=== PATIENT | male | born 1940 | race Caucasian/White ===

== ENCOUNTER 2017-03-02 15:51 | Inpatient (IN) | payer OTHER, MEDICAID ==
[~2017-03-02] VITALS: Ht 165.1 cm; Wt 58.5 kg
[2017-03-02 17:15] VITALS: BP_SYST 128
[2017-03-02 18:11] LABS: EOSINOPHILS # (AUTO) 0.3 K/uL (0.0-0.4); HEMOGLOBIN 11.7 g/dL (14.0-18.0); LYMPHOCYTES # (AUTO) 1.5 K/uL (1.0-5.5); MONOCYTES # (AUTO) 0.6 K/uL (0.0-1.0); NEUTROPHILS # (AUTO) 1.1 K/uL (1.8-7.7); NEUTROPHILS % (AUTO) 32.5 % (40.0-70.0); WHITE BLOOD COUNT (AUTO) 3.5 K/uL (4.8-10.8)
[2017-03-02 18:15] LABS: BASOPHILS % (AUTO) 0.9 % (0.0-2.0); EOSINOPHILS % (AUTO) 8.3 % (0.0-4.0); HEMATOCRIT 34.2 % (36-54); LYMPHOCYTES % (AUTO) 40.4 % (20.5-51.5); MEAN CORPUSCULAR HEMOGLOBIN 36 pg (27-31); MEAN CORPUSCULAR HGB CONC 34 % (32-36); MEAN CORPUSCULAR VOLUME 104 fL (79.0-98.0); MONOCYTES % (AUTO) 17.9 % (1.7-9.3); PLATELET COUNT (AUTO) 137 K/uL (130-430); RED BLOOD CELL COUNT(AUTO) 3.29 MIL/uL (4.2-6.2); RED CELL DISTRIBUTION WIDTH 13.7 % (9.0-15.0)
[2017-03-02 18:20] LABS: ALANINE AMINOTRANSFERASE 25 U/L (12-78); ANION GAP 7 (5-15); ASPARTATE AMINOTRANSFERASE 30 U/L (10-37); CHLORIDE 108 mmol/L (98-107); CREATININE 0.64 mg/dL (0.55-1.30); GLUCOSE 74 mg/dL (70-99); POTASSIUM 3.6 mmol/L (3.5-5.1); SODIUM SERUM 143 mmol/L (136-145); TOTAL BILIRUBIN 0.5 mg/dL (0.0-1.0); UREA NITROGEN, BLOOD 17 mg/dL (8-21)
[2017-03-02 18:37] LABS: CALCIUM 8.3 mg/dL (8.4-11.0)
[2017-03-02] MEDS: LACTULOSE 20 GM/30 ML UDC PO SCH (20:59)
[2017-03-02] MEDS: RIFAXIMIN 550 MG TABLET PO SCH (20:59)
[2017-03-02] MEDS ORDERED: MEROPENEM 500 MG VIAL IV ONE (21:26)
[2017-03-02] MEDS: MEROPENEM 1,000 MG in NS 50 ML IV SCH (22:09)
[2017-03-02] MEDS: NORMAL SALINE 5 ML DISP.SYRIN IVF SCH (22:09)
[2017-03-03 00:17] VITALS: BP_SYST 126
[2017-03-03 04:07] VITALS: BP_SYST 125
[2017-03-03] MEDS: MEROPENEM 1,000 MG in NS 50 ML IV SCH ×3 (06:00→21:58)
[2017-03-03] MEDS: NORMAL SALINE 5 ML DISP.SYRIN IVF SCH ×3 (06:00→22:03)
[2017-03-03 08:25] VITALS: BP_SYST 110
[2017-03-03] MEDS: LACTULOSE 20 GM/30 ML UDC PO SCH ×2 (08:44→20:27)
[2017-03-03] MEDS: RIFAXIMIN 550 MG TABLET PO SCH ×2 (08:44→20:27)
[2017-03-03] MEDS: ENOXAPARIN SODIUM 40 MG/0.4 ML SYRINGE SUBCUT SCH (08:45)
[2017-03-03 11:32] VITALS: BP_SYST 145
[2017-03-03 14:24] LABS: BILIRUBIN,URINE NEGATIVE (NEGATIVE); BLOOD, URINE NEGATIVE (NEGATIVE); CLARITY/URINE CLEAR (CLEAR); COLOR,URINE YELLOW (YELLOW); GLUCOSE,URINE NEGATIVE (NEGATIVE); KETONES,URINE NEGATIVE (NEGATIVE); LEUKOCYTE ESTERASE ,URINE NEGATIVE (NEGATIVE); NITRITE, URINE NEGATIVE (NEGATIVE); PROTEIN URINE NEGATIVE (NEGATIVE); UROBILINOGEN,URINE 0.2 (0.2-1.0)
[2017-03-03 15:38] VITALS: BP_SYST 119
[2017-03-03] MEDS: TAMSULOSIN HCL 0.4 MG CAP PO SCH (16:03)
[2017-03-03] MEDS ORDERED: TAMSULOSIN HCL 0.4 MG CAP ONE (16:12)
[2017-03-04 01:08] VITALS: BP_SYST 141
[2017-03-04 04:36] VITALS: BP_SYST 127
[2017-03-04] MEDS: MEROPENEM 1,000 MG in NS 50 ML IV SCH ×3 (05:51→21:15)
[2017-03-04] MEDS: NORMAL SALINE 5 ML DISP.SYRIN IVF SCH ×3 (05:51→21:16)
[2017-03-04 07:34] VITALS: BP_SYST 132
[2017-03-04] MEDS: TAMSULOSIN HCL 0.4 MG CAP PO SCH (09:57)
[2017-03-04] MEDS: LACTULOSE 20 GM/30 ML UDC PO SCH ×2 (09:57→21:13)
[2017-03-04] MEDS: RIFAXIMIN 550 MG TABLET PO SCH ×2 (09:57→21:13)
[2017-03-04] MEDS: ENOXAPARIN SODIUM 40 MG/0.4 ML SYRINGE SUBCUT SCH (09:58)
[2017-03-04 12:21] VITALS: BP_SYST 111
[2017-03-04 16:05] VITALS: BP_SYST 123
[2017-03-04 20:15] VITALS: BP_SYST 121
[2017-03-05 00:16] VITALS: BP_SYST 134
[2017-03-05 04:24] VITALS: BP_SYST 129
[2017-03-05] MEDS: MEROPENEM 1,000 MG in NS 50 ML IV SCH ×2 (06:16→14:25)
[2017-03-05] MEDS: NORMAL SALINE 5 ML DISP.SYRIN IVF SCH ×2 (06:16→14:26)
[2017-03-05] MEDS: TAMSULOSIN HCL 0.4 MG CAP PO SCH (09:06)
[2017-03-05] MEDS: LACTULOSE 20 GM/30 ML UDC PO SCH (09:06)
[2017-03-05] MEDS: RIFAXIMIN 550 MG TABLET PO SCH (09:06)
[2017-03-05] MEDS: ENOXAPARIN SODIUM 40 MG/0.4 ML SYRINGE SUBCUT SCH (09:07)
[2017-03-05 09:47] LABS: BASOPHILS % (AUTO) 0.7 % (0.0-2.0); EOSINOPHILS # (AUTO) 0.3 K/uL (0.0-0.4); EOSINOPHILS % (AUTO) 7.4 % (0.0-4.0); HEMATOCRIT 34.2 % (36-54); HEMOGLOBIN 11.3 g/dL (14.0-18.0); LYMPHOCYTES # (AUTO) 1.4 K/uL (1.0-5.5); LYMPHOCYTES % (AUTO) 36.7 % (20.5-51.5); MEAN CORPUSCULAR HEMOGLOBIN 35 pg (27-31); MEAN CORPUSCULAR HGB CONC 33 % (32-36); MEAN CORPUSCULAR VOLUME 105 fL (79.0-98.0); MONOCYTES # (AUTO) 0.7 K/uL (0.0-1.0); MONOCYTES % (AUTO) 16.6 % (1.7-9.3); NEUTROPHILS # (AUTO) 1.5 K/uL (1.8-7.7); NEUTROPHILS % (AUTO) 38.6 % (40.0-70.0); PLATELET COUNT (AUTO) 121 K/uL (130-430); RED BLOOD CELL COUNT(AUTO) 3.26 MIL/uL (4.2-6.2); RED CELL DISTRIBUTION WIDTH 13.6 % (9.0-15.0)
[2017-03-05 09:48] LABS: WHITE BLOOD COUNT (AUTO) 3.9 K/uL (4.8-10.8)
[2017-03-05 09:56] LABS: ALANINE AMINOTRANSFERASE 36 U/L (12-78); ALBUMIN 2.9 g/dL (3.4-4.8); ANION GAP 5 (5-15); ASPARTATE AMINOTRANSFERASE 42 U/L (10-37); CALCIUM 8.6 mg/dL (8.4-11.0); CHLORIDE 105 mmol/L (98-107); CREATININE 0.49 mg/dL (0.55-1.30); GLUCOSE 92 mg/dL (70-99); POTASSIUM 4.4 mmol/L (3.5-5.1); SODIUM SERUM 135 mmol/L (136-145); TOTAL BILIRUBIN 0.5 mg/dL (0.0-1.0); UREA NITROGEN, BLOOD 13 mg/dL (8-21)
[2017-03-05 12:43] VITALS: BP_SYST 139
[2017-03-05] MEDS ORDERED: traMADol HCL HCL 50 MG TABLET (ULTRAM) PO PRN (12:45)
[2017-03-05 15:34] VITALS: BP_SYST 139
[2017-03-05 17:41] VITALS: BP_SYST 139
[2017-03-06 02:17] LABS: % FREE PSA 10.7 % (.); FREE PSA 0.16 ng/mL; PROSTATE SPECIFIC AG TOTAL 1.5 ng/mL (0.0-4.0)
== END 2017-03-05 18:10 | disposition home or self-care (01) | DRG 690 ==
LOC: SMU 16:50
PROVIDERS: ADMIT Family Medicine; ATTEND Family Medicine
DX: N39.0 Urinary tract infection, site not specified (principal); K76.6 Portal hypertension; L03.115 Cellulitis of right lower limb; K70.30 Alcoholic cirrhosis of liver without ascites; E44.1 Mild protein-calorie malnutrition; L03.116 Cellulitis of left lower limb; B96.20 Unspecified Escherichia coli [E. coli] as the cause of diseases classified elsewhere; M81.0 Age-related osteoporosis without current pathological fracture; D64.9 Anemia, unspecified; Z68.21 Body mass index [BMI] 21.0-21.9, adult; N40.1 Benign prostatic hyperplasia with lower urinary tract symptoms
CPT/HCPCS: 36415; 76770; 80053; 81003; 82105; 84153; 85025; 85610-TC; 85730-TC; 87040-TC; 87086; J1650; J2185; J7050

== ENCOUNTER 2020-03-21 02:09 | Emergency (ER) | payer OTHER, MEDICAID ==
[~2020-03-21] VITALS: Ht 162.6 cm; Wt 62.1 kg
[2020-03-21 02:55] VITALS: BP_SYST 144
--- NOTE | 2020-03-21 02:55 | NUR ---
Patient to ER bed 5 to gown for evaluation. Side rails up. Report given to OCTOBER.
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
--- NOTE | 2020-03-21 03:30 | NUR ---
ER Dr. Zafar at bedside examining patient.
[2020-03-21] MEDS ORDERED: KETOROLAC TROMETHAMINE 60 MG/2 ML VIAL IM ONE (04:00)
--- NOTE | 2020-03-21 05:52 | NUR ---
X- ray at bedside.
--- NOTE | 2020-03-21 07:06 | NUR ---
Patient given written and verbal discharge instructions and verbalizes understanding. ER MD discussed with patient the results and treatment provided. Patient in stable condition. ID arm band removed. NO Rx given. Patient educated on pain management and to follow up with PMD. Pain Scale 1/10. Opportunity for questions provided and answered. Medication side effect fact sheet provided.
[2020-03-21 07:07] VITALS: BP_SYST 144
== END 2020-03-21 07:06 | disposition home or self-care (01) ==
LOC: SED 02:09
DX: S83.91XA Sprain of unspecified site of right knee, initial encounter (principal); S70.11XA Contusion of right thigh, initial encounter; V29.9XXA Motorcycle rider (driver) (passenger) injured in unspecified traffic accident, initial encounter; Y93.89 Activity, other specified; Y92.89 Other specified places as the place of occurrence of the external cause; Y99.8 Other external cause status
CPT/HCPCS: 72170; 73552; 73560; 96372; 99284; J1885